=== PATIENT | male | born 1940 | race Caucasian/White ===

== ENCOUNTER 2018-12-02 06:02 | Day surgery (SDC) | payer OTHER ==
[2018-11-28 11:59] VITALS: BMI 26.6
[~2018-12-02 06:02] MED LIST: BACITRACIN 15 GM TUBE TOPICAL OINTMENT TP ONE; COCAINE HCL 4% TOPICAL SOLUTION 4 ML BOTTLE TP ONE; LIDOCAINE 1%/EPI 1:100000 (20 ML MULTI DOSE VIAL) IJ ONE
[2018-12-02] MEDS ORDERED: COCAINE HCL 4% TOPICAL SOLUTION 4 ML BOTTLE TP ONE ×2 (07:39→08:35)
[2018-12-02] MEDS ORDERED: LIDOCAINE 1%-EPI 1:100,000 30 ML MDV IJ ONE (07:40)
[2018-12-02] MEDS ORDERED: BACITRACIN 15 GM TUBE TOPICAL OINTMENT ONE (07:41)
[2018-12-02] MEDS ORDERED: PROPOFOL 20 ML ONE ×4 (08:00)
[2018-12-02] MEDS ORDERED: SUCCINYLCHOLINE CHLORIDE 200 MG/10 ML VIAL ONE (08:00)
--- NOTE | 2018-12-02 08:01 | HP ---
Admitting History and Physical - Primary Care Physician PCP: Keith Houser - Admission Chief Complaint: Chronic nasal congestion, post nasal drip, sinus symptoms refractory to abx, steroids and sprays History Source: Patient, Medical Record Limitations to Obtaining History: No Limitations - Past Medical History Cardiovascular: Yes: HTN Pulmonary: Yes: Other (sinusutis) Gastrointestinal: Yes: Other (poyp) - Advance Directives Advance Directives: Yes: Health Care Proxy - Smoking History Smoking history: Former smoker Have you smoked in the past 12 months: No If you are a former smoker, when did you quit?: 30yrs ago - Alcohol/Substance Use Hx Alcohol Use: Yes (beer or vodka daily) Home Medications - Allergies Allergies/Adverse Reactions: Allergies Allergy/AdvReac Type Severity Reaction Status Date / Time No Known Drug Allergies Allergy Verified 12/02/18 06:35 - Home Medications Home Medications: Ambulatory Orders Cholecalciferol (Vitamin D3) [Vitamin D3] 1,000 unit PO DAILY 11/28/18 Ezetimibe/Simvastatin [Vytorin 10-80 mg Tablet] 1 tab PO DAILY 11/28/18 Latanoprost 0.005% Eye Drops [Xalatan 0.005% Eye Drops -] 1 drop OU HS 11/28/18 Levothyroxine [Synthroid -] 112 mcg PO UTDICT 11/28/18 Levothyroxine [Synthroid -] 125 mcg PO UTDICT 11/28/18 Lisinopril 10 mg PO DAILY 11/28/18 Physical Examination Vital Signs: Vital Signs Temperature 98.3 F 12/02/18 06:30 Pulse Rate 57 L 12/02/18 06:30 Respiratory Rate 18 12/02/18 06:30 Blood Pressure 124/70 12/02/18 06:30 O2 Sat by Pulse Oximetry (%) 95 12/02/18 06:29 Constitutional: Yes: Well Nourished, No Distress, Calm Eyes: Yes: WNL, Conjunctiva Clear, EOM Intact HENT: Yes: WNL, Atraumatic Neck: Yes: WNL, Supple Cardiovascular: Yes: WNL, Regular Rate and Rhythm Respiratory: Yes: WNL, Regular Gastrointestinal: Yes: WNL Problem List - Problems (1) Sinusitis Assessment/Plan: For endoscopic sinus surgery. Code(s): J32.9 - CHRONIC SINUSITIS, UNSPECIFIED
[2018-12-02] MEDS ORDERED: DESFLURANE GAS 240 ML BOTTLE IH ONE (08:06)
[2018-12-02] MEDS ORDERED: ceFAZolin SODIUM 1 GM VIAL IVPB ONE (08:25)
[2018-12-02] MEDS ORDERED: LIDOCAINE 1%/EPI 1:100000 (20 ML MULTI DOSE VIAL) IJ ONE (08:35)
[2018-12-02] MEDS ORDERED: NEOSTIGMINE METHYLSULFATE 0.5 MG/ML - 10 ML MDV ONE (08:43)
[2018-12-02] MEDS ORDERED: ePHEDrine SULFATE 50 MG/1 ML AMPULE ONE (08:47)
[2018-12-02] MEDS ORDERED: GLYCOPYRROLATE 0.2 MG/1 ML VIAL ONE (09:02)
[2018-12-02] MEDS ORDERED: DEXAMETHASONE SOD PHOSPHATE 4 MG/1 ML VIAL ONE (09:02)
[2018-12-02] MEDS ORDERED: LIDOCAINE HCL/PF 2% SDV 5ML VIAL ONE (09:02)
[2018-12-02] MEDS ORDERED: oxyCODONE HCL 5 MG TABLET PO PRN ×2 (09:10)
[2018-12-02] MEDS ORDERED: PROMETHAZINE HCL 25 MG/1 ML VIAL IVPB PRN (09:10)
[2018-12-02] MEDS ORDERED: ONDANSETRON 4 MG/2 ML VIAL IVPUSH PRN (09:10)
[2018-12-02] MEDS ORDERED: ACETAMINOPHEN INJECTION 100 ML IVPB ONE (09:12)
[2018-12-02] MEDS ORDERED: LACTATED RINGERS SOLUTION 1,000 ML IV SCH (09:15)
[2018-12-02] MEDS ORDERED: ACETAMINOPHEN 1000 MG/100 ML VIAL (NON FORMULARY) IVPB ONE (09:15)
[2018-12-02] MEDS ORDERED: TRIAMCINOLONE ACET 40MG/1ML VIAL ONE (09:19)
[2018-12-02] MEDS ORDERED: BACITRACIN 15 GM TUBE TOPICAL OINTMENT TP ONE (09:20)
[2018-12-02] MEDS ORDERED: TRIAMCINOLONE ACETONIDE 40 MG/ML 10 ML VIAL IJ ONE (09:21)
[2018-12-02 12:16] VITALS: TEMP 97.4
[2018-12-02 15:24] VITALS: BP 141/79; PULSE 59
--- NOTE | 2018-12-04 15:43 | PATH ---
Surgical Pathology Report Patient Name: NATHANIEL CHRISTENSEN [facility]. Rec. #: [id number] /Age/Gender: 1940 (Age: 78) / M Account: [id number] Location: [facility] SUR[facility] Taken: 12/02/2018 Received: 12/02/2018 Reported: 12/04/2018 Physicians: Roberto Carlos Waters M.D. Specimen(s) Received A: NASAL POLYP AND ETHMOIDS B: NASAL POLYP Clinical History Polyp, chronic sinusitis, turbinate hypertrophy Final Diagnosis A. NASAL POLYPS AND ETHMOIDS, EXCISION: CHRONIC SINUSITIS. B. NASAL POLYP, EXCISION: NASAL INFLAMMATORY POLYP. Electronically Signed Osiel Flores M.D. Gross Description A. Received in formalin labeled "nasal polyp and ethmoid," is a 0.8 x 0.6 x 0.1 cm aggregate of perez pink soft tissue fragments. The formalin is filtered and the specimen is entirely submitted in one cassette. B. Received in formalin labeled "nasal polyp," is a 1.7 x 1.2 x 0.3 cm perez-yellow, polypoid portion of soft tissue, consistent with a nasal polyp. The specimen is submitted in toto in one cassette. 12/02/201812/02/2018
--- NOTE | 2018-12-09 19:26 | OP ---
DATE OF OPERATION: 12/02/2018 PREOPERATIVE DIAGNOSES: Chronic sinusitis, nasal polyposis, turbinate hypertrophy. POSTOPERATIVE DIAGNOSES: Chronic sinusitis, nasal polyposis, turbinate hypertrophy. PROCEDURE: Bilateral anterior ethmoidectomy endoscopically with bilateral maxillary antrostomy, bilateral inferior turbinate outfracture, and sinus navigation. SURGEON: Roberto Carlos Waters MD ANESTHESIA: General. 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 He did not improve with a Kenalog injection or with oral steroids or with antibiotic and sprays. He wanted surgical removal. Risks and benefits were discussed in the office and all questions were answered and he wanted to proceed. DESCRIPTION OF PROCEDURE: Patient was brought into the operating room, placed under general anesthesia. Then, 4% cocaine pledgets were placed in both nostrils, and after decongesting the nose, 1% lidocaine with 1:100,000 epinephrine was injected into the lateral nasal wall, inferior and middle turbinate as well as nasal polyp. The patient was then prepped and draped and a Meiaoju patient tracker was placed on and the navigation machine was calibrated. A 0-degree endoscope was used to examine both nostrils. The polyps appeared to be greater on the left side than the right side. Using the guidance machine, 0-degree endoscope, and a 4-mm straight-guided microdebrider, the polyps on the left side were removed with the microdebrider. In the process of removing it, some pieces of the polyp were severed from the main body and sent as a separate specimen. The polypoid tissue extended mostly medial to the middle turbinate on the left side. There was polyp tissue that emanated from the middle meatus and lateral to the middle turbinate. The polypoid tissue was followed into the left anterior ethmoid cavity to the bullae and past the ground lamella. After removing the polyp tissue, the uncinate was pulled forward using a seeker and then a maxillary RoundPeggtronic balloon was placed into the ostia, and 2 separate insufflations of 5 seconds apiece were performed. Then, the balloon was withdrawn. Packing was placed in the ethmoid cavity and medial to the middle turbinate, and then, essentially similar procedure was performed on the right side. Polyp tissue was not as large. A separate specimen was not sent on the right side because the polyp was smaller and removed by using the microdebrider. Care was used on both sides not to go more superior than approximately 3 mm from the skull base. The middle turbinate on the right side had polypoid tissue which was removed and polyp tissue from the middle meatus which was removed. Dissection of the anterior ethmoid on the right side was not carried past the ground lamella. The uncinate on the right side was peeled forward using a seeker, and then, the Meiaoju Guidant balloon was placed into the ostia. Two separate dilatations of 5 seconds apiece were performed. The balloon was then removed. Cottonoids were placed into the ethmoid and medial to the middle turbinate, and then, each inferior turbinate was outfractured with a long nasal speculum. At which time, the patient's nose was suctioned and irrigated, and NasoPore packing was placed into the middle meatus, into the anterior ethmoid space. A separate piece of packing was placed medial to both middle turbinates. Standard NasoPore was used. An injection of Kenalog 40 was placed into the packing within the ethmoid cavity on both sides. Approximately 1 mL of Kenalog 40 was instilled into both ethmoid cavities. Patient was then extubated in the operating room and brought to recovery room in stable condition. Darian [id number]
== END 2018-12-02 15:30 | disposition home or self-care (01) ==
LOC: JASU-SURG 06:02
PROVIDERS: ATTEND Otolaryngology
PROC: 8E09XBG Computer Assisted Procedure of Head and Neck Region, With Computerized Tomography (ICD-10-PCS; 2018-12-02)
PROC: 09BV8ZZ Excision of Left Ethmoid Sinus, Via Natural or Artificial Opening Endoscopic (ICD-10-PCS; 2018-12-02)
PROC: 09BU8ZZ Excision of Right Ethmoid Sinus, Via Natural or Artificial Opening Endoscopic (ICD-10-PCS; 2018-12-02)
PROC: 8E09XBG Computer Assisted Procedure of Head and Neck Region, With Computerized Tomography (ICD-10-PCS; 2018-12-02)
PROC: 09SL8ZZ Reposition Nasal Turbinate, Via Natural or Artificial Opening Endoscopic (ICD-10-PCS; principal; 2018-12-02 08:00)
DX: J32.8 Other chronic sinusitis (principal); J33.8 Other polyp of sinus; J34.3 Hypertrophy of nasal turbinates
CPT/HCPCS: 88304-TC; 94760; J0131